=== PATIENT | male | born 1965 | race Hispanic/Latino ===

== ENCOUNTER 2022-07-17 09:37 | Observation (INO) | payer BC ==
[2022-07-17] VITALS (14 sets, daily range): BP systolic 130–156; BP diastolic 66–99
[~2022-07-17] VITALS: Ht 172.7 cm; Wt 77.1 kg
[2022-07-17 10:04] LABS: BASOPHILS % (AUTO) 0.4 % (0.0-5.0); HEMATOCRIT 49.5 % (42-54); LYMPHOCYTES % (AUTO) 17.7 % (21.0-51.0); MEAN CORPUSCULAR HGB CONC 33.1 g/dL (32.0-36.0); MEAN CORPUSCULAR VOLUME 90.5 fL (79-99); MONOCYTES % (AUTO) 5.8 % (3.0-13.0); NEUTROPHILS % (AUTO) 73.7 % (40.0-77.0); PLATELET COUNT (AUTO) 297 K/uL (130-400); RED BLOOD CELL COUNT(AUTO) 5.47 MIL/uL (4.50-6.20); RED CELL DISTRIBUTION WIDTH 12.9 % (11.0-15.5); WHITE BLOOD COUNT (AUTO) 13.1 K/uL (4.8-10.8)
[2022-07-17 10:18] LABS: INR 0.93 (0.85-1.15); PROTHROMBIN TIME 10.2 SEC (9.6-11.6)
[2022-07-17 10:19] LABS: PARTIAL THROMBOPLASTIN TIME 27.1 SEC (26.3-35.5)
[2022-07-17 10:20] LABS: ALBUMIN 3.5 g/dL (3.5-5.0); CREATININE 0.8 mg/dL (0.5-1.5); POTASSIUM 3.9 mmol/L (3.5-5.1); TOTAL PROTEIN, SERUM 7.6 g/dL (6.0-8.3)
[2022-07-17] MEDS ORDERED: ZOSYN 3.375GM +NS 50ML IV SCH (11:30)
[2022-07-17] MEDS ORDERED: ONDANSETRON 4MG INJ IV ONE (12:00)
[2022-07-17] MEDS ORDERED: MORPHINE 4 MG SYG IVP ONE (12:00)
[2022-07-17] MEDS ORDERED: FENTANYL CITRATE PF 50 MCG/1 ML 5ML AMP IV ONE (17:00)
[2022-07-17] MEDS ORDERED: LIDOCAINE PF 100MG/5ML (2%) SYRINGE 5ML ONE (17:00)
[2022-07-17] MEDS ORDERED: PROPOFOL 10 MG/ML 20ML VIAL IV ONE (17:00)
[2022-07-17] MEDS ORDERED: MIDAZOLAM HCL 1 MG/ML 2ML VIAL ONE (17:01)
[2022-07-17] MEDS ORDERED: ONDANSETRON 4MG INJ ONE (17:27)
[2022-07-17] MEDS ORDERED: ROCURONIUM 10MG/1ML SYR 10 MG/ML ML ONE (17:27)
[2022-07-17] MEDS ORDERED: SUGAMMADEX SODIUM 200 MG/2 ML VIAL IV ONE (18:07)
[2022-07-17] MEDS ORDERED: MORPHINE 4 MG SYG ONE (18:28)
[2022-07-17] MEDS ORDERED: 0.9%NACL 1000ML 1,000 ML IV SCH (21:00)
[2022-07-17] MEDS: ACETAMINOPHEN 325 MG TAB PO PRN (21:23)
[2022-07-18] VITALS: BP 108/65
[2022-07-18 04:00] VITALS: BP 101/64
[2022-07-18] MEDS: ACETAMINOPHEN 325 MG TAB PO PRN ×2 (07:01→12:44)
[2022-07-18 07:35] VITALS: BP 123/80
[2022-07-18 11:35] VITALS: BP 120/66
[2022-07-18 15:35] VITALS: BP 130/91
== END 2022-07-18 17:45 | disposition home or self-care (01) ==
LOC: EDH 09:37 → EDHIP 20:00 → 4AH 20:24
PROVIDERS: ADMIT Surgery; ATTEND Surgery
DX: T18.5XXA Foreign body in anus and rectum, initial encounter (principal); Z20.822 Contact with and (suspected) exposure to COVID-19; Z93.3 Colostomy status
CPT/HCPCS: 45915; 96365; 96366; 96375; 99285; 80053; 85025; 85610; 85730; 87040 ×2; 83605; 36415; 87635; 74018 ×2; 74176; G0378 ×21; J7120; A4606; C9803; J3010; J2001; J2250; J2704; J2405 ×2; J2270 ×2; J2543